=== PATIENT | male | born 1965 ===

== ENCOUNTER 2018-06-27 13:26 | Outpatient (CLI) | payer BC ==
--- NOTE | 2018-06-27 14:52 | RAD ---
PA AND LATERAL VIEWS CHEST: HISTORY: Wellness exam. FINDINGS: The heart size is normal. The lungs are expanded without focal areas of consolidation, pneumothorace s, or pleural effusions. No acute osseous abnormalities are seen. IMPRESSION: No radiographic evidence of acute cardiopulmonary process. POS: [facility]
== END 2018-06-27 13:27 | disposition home or self-care (01) ==
LOC: BICRAD 13:26
DX: Z00.00 Encounter for general adult medical examination without abnormal findings (principal)
CPT/HCPCS: 71046

== ENCOUNTER 2020-12-30 09:22 | Outpatient (CLI) | payer BC | END 2020-12-30 09:23 | disposition home or self-care (01) | LOC: BICRAD 09:22 | PROVIDERS: ATTEND Internal Medicine | DX: Z00.00 Encounter for general adult medical examination without abnormal findings (principal) | CPT/HCPCS: 71046 ==